=== PATIENT | female | born 1940 ===

== ENCOUNTER 2018-08-18 09:13 | Outpatient (CLI) | payer OTHER ==
[2018-08-18] MEDS ORDERED: ZANTAC300 MG PO (10:23)
== END 2018-08-18 10:29 | disposition home or self-care (01) ==
LOC: OFIC 805 09:13
DX: J31.0 Chronic rhinitis (principal); R05 Cough; J37.0 Chronic laryngitis; H93.11 Tinnitus, right ear; H61.21 Impacted cerumen, right ear; R68.2 Dry mouth, unspecified

== ENCOUNTER 2018-09-24 10:04 | Emergency (ER) | payer OTHER ==
[~2018-09-24] VITALS: Ht 152.4 cm; Wt 64.4 kg
[~2018-09-24 10:04] MED LIST: ZANTAC300 MG PO
[2018-09-24] MEDS ORDERED: LASIX20 MG (10:30)
[2018-09-24] MEDS ORDERED: ENALAPRIL MALEA10 MG (10:31)
[2018-09-24] MEDS ORDERED: METOPROLOL SUCC50 MG (10:32)
[2018-09-24] MEDS ORDERED: PEPCID AC20 MG (10:33)
[2018-09-24] MEDS ORDERED: SYNTHROID75 MCG (10:37)
== END 2018-09-24 11:26 | disposition home or self-care (01) ==
LOC: ER 10:04
DX: J06.9 Acute upper respiratory infection, unspecified (principal)

== ENCOUNTER 2018-11-09 09:38 | Emergency (ER) | payer OTHER ==
[~2018-11-09] VITALS: Ht 152.4 cm; Wt 66.2 kg
[~2018-11-09 09:38] MED LIST changes: +ENALAPRIL MALEA10 MG; +LASIX20 MG; +METOPROLOL SUCC50 MG; +PEPCID AC20 MG; +SYNTHROID75 MCG
== END 2018-11-09 12:51 | disposition home or self-care (01) ==
LOC: ER 09:38
DX: M54.89 Other dorsalgia (principal)

== ENCOUNTER 2019-03-30 05:22 | Emergency (ER) | payer OTHER ==
[~2019-03-30] VITALS: Ht 152.4 cm; Wt 64.4 kg
== END 2019-03-30 11:17 | disposition home or self-care (01) ==
LOC: ER 05:22
DX: N39.0 Urinary tract infection, site not specified (principal); B96.29 Other Escherichia coli [E. coli] as the cause of diseases classified elsewhere; R10.31 Right lower quadrant pain; R10.11 Right upper quadrant pain

== ENCOUNTER → 2020-02-11 | Emergency (ER) | payer OTHER ==
[~2020-02-11] VITALS: Ht 162.6 cm; Wt 68.0 kg
== END | disposition left against medical advice (07) ==
LOC: ER 18:01
DX: J40 Bronchitis, not specified as acute or chronic (principal); I16.1 Hypertensive emergency; I10 Essential (primary) hypertension; Z03.818 Encounter for observation for suspected exposure to other biological agents ruled out; M54.89 Other dorsalgia

== ENCOUNTER 2020-10-12 08:21 | Emergency (ER) | payer OTHER ==
[~2020-10-12] VITALS: Ht 152.4 cm; Wt 65.8 kg
== END 2020-10-12 12:20 | disposition home or self-care (01) ==
LOC: ER 08:21
DX: K29.70 Gastritis, unspecified, without bleeding (principal); R10.13 Epigastric pain

== ENCOUNTER 2020-12-14 07:29 | Emergency (ER) | payer OTHER ==
[~2020-12-14] VITALS: Ht 152.4 cm; Wt 66.2 kg
[2020-12-14] MEDS ORDERED: COZAAR25 MG PO (07:59)
[2020-12-14] MEDS ORDERED: ZITHROMAX200 MG PO (12:16)
[2020-12-14] MEDS ORDERED: NORFLEX100MG PO (12:16)
[2020-12-14] MEDS ORDERED: TESSALON PERLE100 M1 PO (12:16)
== END 2020-12-14 12:30 | disposition home or self-care (01) ==
LOC: ER 07:29
DX: J06.9 Acute upper respiratory infection, unspecified (principal); Z20.822 Contact with and (suspected) exposure to COVID-19

== ENCOUNTER 2020-12-27 17:43 | Inpatient (IN) | payer OTHER ==
[~2020-12-27] VITALS: Ht 152.4 cm; Wt 64.9 kg
[~2020-12-27 17:43] MED LIST changes: +COZAAR25 MG PO; +NORFLEX100MG PO; +TESSALON PERLE100 M1 PO; +ZITHROMAX200 MG PO
[2021-01-09] MEDS ORDERED: LORATADINE10 MG PO (11:06)
[2021-01-09] MEDS ORDERED: XOPENEX0.63 MG/3 IH (11:07)
[2021-01-09] MEDS ORDERED: BENZONATATE100 MG PO (11:07)
[2021-01-09] MEDS ORDERED: BUDESONIDE0.5 MG/2 M IH (11:08)
[2021-01-09] MEDS ORDERED: MUCINEX DM ER1 EACH PO (11:08)
[2021-01-09] MEDS ORDERED: [UNRECOGNIZED DRUG - OTHER] PO (11:09)
[2021-01-09] MEDS ORDERED: FLONASE16 GM NASAL (11:10)
[2021-01-09] MEDS ORDERED: PANTOPRAZOLE SO40 MG PO (11:10)
[2021-01-09] MEDS ORDERED: CEFDINIR300 MG PO (11:11)
[2021-01-09] MEDS ORDERED: INTESTINEX680 M1 PO (11:12)
[2021-01-09] MEDS ORDERED: MEDROLPACK PO (11:26)
== END 2021-01-09 12:09 | disposition home or self-care (01) | DRG 690 ==
LOC: ER 17:43 → SEC-K 12-28 10:24 → MEDJ 12-28 15:09
PROVIDERS: ADMIT Internal Medicine; ATTEND Internal Medicine
PROC: BW25ZZZ Computerized Tomography (CT Scan) of Chest, Abdomen and Pelvis (ICD-10-PCS; principal; 2020-12-28)
PROC: BW21ZZZ Computerized Tomography (CT Scan) of Abdomen and Pelvis (ICD-10-PCS; 2020-12-28)
PROC: 4A12X4Z Monitoring of Cardiac Electrical Activity, External Approach (ICD-10-PCS; 2020-12-28)
PROC: B24BZZZ Ultrasonography of Heart with Aorta (ICD-10-PCS; 2020-12-28)
PROC: 3E0F7GC Introduction of Other Therapeutic Substance into Respiratory Tract, Via Natural or Artificial Opening (ICD-10-PCS; 2021-01-02)
DX: N39.0 Urinary tract infection, site not specified (principal); N17.8 Other acute kidney failure; J45.901 Unspecified asthma with (acute) exacerbation; R65.10 Systemic inflammatory response syndrome (SIRS) of non-infectious origin without acute organ dysfunction; I25.810 Atherosclerosis of coronary artery bypass graft(s) without angina pectoris; E78.00 Pure hypercholesterolemia, unspecified; B96.29 Other Escherichia coli [E. coli] as the cause of diseases classified elsewhere; N12 Tubulo-interstitial nephritis, not specified as acute or chronic; Z20.822 Contact with and (suspected) exposure to COVID-19; E11.9 Type 2 diabetes mellitus without complications; Z79.4 Long term (current) use of insulin; I10 Essential (primary) hypertension; Z95.5 Presence of coronary angioplasty implant and graft

== ENCOUNTER 2021-01-28 08:05 | Emergency (ER) | payer OTHER ==
[~2021-01-28] VITALS: Ht 149.9 cm; Wt 63.5 kg
[~2021-01-28 08:05] MED LIST changes: +BENZONATATE100 MG PO; +BUDESONIDE0.5 MG/2 M IH; +CEFDINIR300 MG PO; +FLONASE16 GM NASAL; +INTESTINEX680 M1 PO; +LORATADINE10 MG PO; +MEDROLPACK PO; +MUCINEX DM ER1 EACH PO; +PANTOPRAZOLE SO40 MG PO; +XOPENEX0.63 MG/3 IH; +[UNRECOGNIZED DRUG - OTHER] PO
== END 2021-01-28 12:52 | disposition home or self-care (01) ==
LOC: ER 08:05
DX: N39.0 Urinary tract infection, site not specified (principal)

== ENCOUNTER 2021-01-31 08:36 | Emergency (ER) | payer OTHER ==
[~2021-01-31] VITALS: Ht 152.4 cm; Wt 63.0 kg
[2021-01-31] MEDS ORDERED: VAZALORE81 MG PO (08:46)
[2021-01-31] MEDS ORDERED: PLAVIX75 MG PO (08:46)
[2021-01-31] MEDS ORDERED: HUMULIN N100 UNIT/2 (08:48)
== END 2021-01-31 15:59 | disposition home or self-care (01) ==
LOC: ER 08:36
DX: K52.89 Other specified noninfective gastroenteritis and colitis (principal); Z20.822 Contact with and (suspected) exposure to COVID-19

== ENCOUNTER 2021-02-14 03:00 | Emergency (ER) | payer OTHER ==
[~2021-02-14] VITALS: Ht 160 cm; Wt 69.4 kg
[~2021-02-14 03:00] MED LIST changes: +HUMULIN N100 UNIT/2; +PLAVIX75 MG PO; +VAZALORE81 MG PO
[2021-02-14] MEDS ORDERED: ZYNCOF 20-400120 ML PO (06:50)
[2021-02-14] MEDS ORDERED: BUDESONIDE0.5 MG/2 M IH (06:50)
[2021-02-14] MEDS ORDERED: ALBUTEROL2.5 MG/3 M IH (06:50)
== END 2021-02-14 07:02 | disposition home or self-care (01) ==
LOC: ER 03:00
DX: J45.901 Unspecified asthma with (acute) exacerbation (principal); Z03.818 Encounter for observation for suspected exposure to other biological agents ruled out

== ENCOUNTER 2021-04-16 20:31 | Emergency (ER) | payer OTHER ==
[~2021-04-16] VITALS: Ht 152.4 cm; Wt 61.2 kg
[~2021-04-16 20:31] MED LIST changes: +ALBUTEROL2.5 MG/3 M IH; +ZYNCOF 20-400120 ML PO
[2021-04-16] MEDS ORDERED: ATACAND16 MG (20:53)
== END 2021-04-16 23:30 | disposition home or self-care (01) ==
LOC: ER 20:31
DX: J40 Bronchitis, not specified as acute or chronic (principal); I10 Essential (primary) hypertension

== ENCOUNTER 2021-06-02 03:01 | Emergency (ER) | payer OTHER ==
[~2021-06-02] VITALS: Ht 152.4 cm; Wt 59.9 kg
[~2021-06-02 03:01] MED LIST changes: +ATACAND16 MG
[2021-06-02] MEDS ORDERED: LEVALBUTER1.25 MG/3 IH (06:07)
[2021-06-02] MEDS ORDERED: SYMBICORT 16010.2 GM IH (06:07)
[2021-06-02] MEDS ORDERED: MUCINEX DM ER1 EAC1 PO (06:07)
[2021-06-02] MEDS ORDERED: AZITHROMYCIN500 MG PO (06:07)
[2021-06-02] MEDS ORDERED: SURFAK240 M1 PO (06:07)
== END 2021-06-02 06:21 | disposition home or self-care (01) ==
LOC: ER 03:01
DX: R06.02 Shortness of breath (principal); Z20.822 Contact with and (suspected) exposure to COVID-19; K59.00 Constipation, unspecified

== ENCOUNTER 2021-07-24 20:24 | Emergency (ER) | payer OTHER ==
[~2021-07-24] VITALS: Ht 152.4 cm; Wt 66.2 kg
[~2021-07-24 20:24] MED LIST changes: +AZITHROMYCIN500 MG PO; +LEVALBUTER1.25 MG/3 IH; +MUCINEX DM ER1 EAC1 PO; +SURFAK240 M1 PO; +SYMBICORT 16010.2 GM IH
[2021-07-25] MEDS ORDERED: MIRALAX510 GM PO (06:02)
== END 2021-07-25 06:07 ==
LOC: ER 20:24
DX: K59.09 Other constipation (principal); Z88.1 Allergy status to other antibiotic agents; E11.65 Type 2 diabetes mellitus with hyperglycemia; Z79.4 Long term (current) use of insulin; I10 Essential (primary) hypertension

== ENCOUNTER 2021-08-03 07:59 | Emergency (ER) | payer OTHER ==
[~2021-08-03] VITALS: Ht 152.4 cm; Wt 66.2 kg
[~2021-08-03 07:59] MED LIST changes: +MIRALAX510 GM PO
== END 2021-08-03 12:52 | disposition home or self-care (01) ==
LOC: ER 07:59
DX: R30.0 Dysuria (principal); N39.0 Urinary tract infection, site not specified; N64.89 Other specified disorders of breast; E03.9 Hypothyroidism, unspecified; I10 Essential (primary) hypertension; Z88.1 Allergy status to other antibiotic agents; E11.9 Type 2 diabetes mellitus without complications; Z79.4 Long term (current) use of insulin

== ENCOUNTER 2021-10-16 16:04 | Emergency (ER) | payer OTHER ==
[~2021-10-16] VITALS: Ht 154.9 cm; Wt 66.2 kg
[2021-10-16] MEDS ORDERED: PEPCID AC20 MG PO (20:41)
[2021-10-16] MEDS ORDERED: LEVSIN/SL0.125 MG SL (20:41)
== END 2021-10-16 20:51 | disposition home or self-care (01) ==
LOC: ER 16:04
DX: R10.84 Generalized abdominal pain (principal); E11.9 Type 2 diabetes mellitus without complications; Z79.4 Long term (current) use of insulin; I25.10 Atherosclerotic heart disease of native coronary artery without angina pectoris; I10 Essential (primary) hypertension; J45.909 Unspecified asthma, uncomplicated; Z88.1 Allergy status to other antibiotic agents